=== PATIENT | male | born 1985 | race Caucasian/White ===

== ENCOUNTER 2017-06-27 19:15 | Emergency (ER) | payer OTHER, MEDICAID ==
[~2017-06-27] VITALS: Ht 180.3 cm; Wt 141.0 kg
[~2017-06-27 19:15] MED LIST: Z.0.NO CURRENT MEDS
[2017-06-27 19:20] VITALS: BP 169/104; PULSE 78; RESP 18; TEMP 97.6; O2SAT 98
[2017-06-27] MEDS ORDERED: SERT-129 PO (19:42)
[2017-06-27] MEDS ORDERED: AMIT10TA6 PO (19:42)
[2017-06-27] MEDS ORDERED: CLAR10CA3 PO (19:42)
[2017-06-27] MEDS ORDERED: WELLTAB39 PO (19:42)
[2017-06-27] MEDS ORDERED: ALBU0.63 NEB (19:42)
[2017-06-27] MEDS ORDERED: FLUT1SPR5 EACH NARE (19:42)
--- NOTE | 2017-06-27 19:44 | PD ---
HPI Chief Complaint: Headache Time Seen by Provider: 19:31 Travel History International Travel<30 days: No Contact w/Intl Traveler<30days: No Traveled to known affect area: No History of Present Illness HPI This patient complains of migraine headache. He is a bilateral frontal throbbing. He gets migraines very frequently. He is on amitriptyline try to help prevent but it's not working. No head injury or fever or thunderclap onset. This feels like his usual migraine. He has nausea. No other neurologic complaint. No alleviating factors. PFSH Social History Alcohol Use: No Tobacco Use: No Allergies-Medications (Allergen,Severity, Reaction): Coded Allergies: penicillin G (Unverified Allergy, Severe, 06/27/17) Reported Meds & Prescriptions Reported Meds & Active Scripts Active Reported Albuterol Neb (Albuterol Sulfate) 0.63 Mg/3 Ml Neb 0.63 Mg NEB TID NEB PRN Flonase Nasal [place] (Fluticasone Nasal [place]) 50 Mcg/Act [place] 50 Mcg EACH NARE BID Claritin (Loratadine) 10 Mg Cap 10 Mg PO DAILY Sertraline (Sertraline HCl) 100 Mg Tab 100 Mg PO DAILY Wellbutrin Xl 24 HR (Bupropion HCl) 300 Mg Tab 300 Mg PO DAILY Amitriptyline (Amitriptyline HCl) 10 Mg Tab 10 Mg PO HS Review of Systems General / Constitutional: No: Fever HENT: Positive: Headaches Cardiovascular: No: Chest Pain or Discomfort Respiratory: No: Cough Gastrointestinal: Positive: Nausea Physical Exam Narrative GENERAL: Well-nourished, well-developed patient with headache . SKIN: Focused skin assessment reveals no rash and nodules. Skin is Warm and dry. HEAD: Atraumatic. Normocephalic. EYES: Pupils equal and round. No scleral icterus. No injection or drainage. ENT: No nasal bleeding or discharge. Mucous membranes pink and moist. NECK: Trachea midline. No JVD. CARDIOVASCULAR: Regular rate and rhythm. No murmur appreciated. RESPIRATORY: No accessory muscle use. Clear to auscultation. Breath sounds equal bilaterally. GASTROINTESTINAL: Abdomen soft, non-tender, nondistended. Hepatic and splenic margins not palpable. MUSCULOSKELETAL: No obvious deformities. No clubbing. No cyanosis. No edema. NEUROLOGICAL: Awake and alert. No obvious cranial nerve deficits. Motor grossly within normal limits. Normal speech. PSYCHIATRIC: Appropriate mood and affect; insight and judgment normal. Data Data Last Documented VS Vital Signs Date Time Temp Pulse Resp B/P (MAP) Pulse Ox O2 Delivery O2 Flow Rate FiO2 06/27/17 20:30 71 18 128/77 (94) 98 Room Air 06/27/17 19:20 97.6 Orders Orders Ketorolac Inj (Toradol Inj) (06/27/17 19:45) Promethazine Inj (Phenergan Inj) (06/27/17 19:45) Acetamin-Hydrocod 325-5 Mg ([place] 5-325 (06/27/17 19:45) MDM Medical Decision Making Medical Screen Exam Complete: Yes Emergency Medical Condition: Yes Medical Record Reviewed: Yes Differential Diagnosis Differential diagnosis includes migraine, tension headache, cluster headache, meningitis. Narrative Course I have reviewed the patient's electronic medical record. Patient is neurologically intact. This feels like her usual migraine. I don't see any indication for emergent studies. I gave him injection of Toradol and Phenergan and 2 pain pills The patient was advised to follow up with their physician and return if they worsen. Diagnosis Primary Impression: Migraine headache Qualified Codes: G43.909 - Migraine, unspecified, not intractable, without status migrainosus Additional Instructions: The patient was advised to follow up with their physician and return if they worsen. Med/Other Pt SpecificInfo: Other Disposition: 01 DISCHARGE HOME Condition: Stable Sergei Ya MD Jun 27, 2017 19:44
[2017-06-27] MEDS ORDERED: ACETAMINOPHEN/HYDROcodone 325 MG/5 MG TAB PO ONE (19:45)
[2017-06-27] MEDS ORDERED: PROMETHAZINE INJ 25 MG/ML VIAL IM ONE (19:45)
[2017-06-27] MEDS ORDERED: KETOROLAC TROMETHAMINE 60 MG/2 ML (IM) VIAL IM ONE (19:45)
[2017-06-27 20:30] VITALS: BP 128/77; PULSE 71; RESP 18; O2SAT 98
== END 2017-06-27 21:09 | disposition home or self-care (01) ==
LOC: PHED 19:15
DX: G43.909 Migraine, unspecified, not intractable, without status migrainosus (principal); R11.0 Nausea
CPT/HCPCS: 96372; 99284; J1885; J2550

== ENCOUNTER 2017-06-30 20:03 | Emergency (ER) | payer OTHER ==
[~2017-06-30 20:03] MED LIST changes: +ALBU0.63 NEB; +AMIT10TA6 PO; +CLAR10CA3 PO; +FLUT1SPR5 EACH NARE; +SERT-129 PO; +WELLTAB39 PO; -Z.0.NO CURRENT MEDS
[2017-06-30 20:25] VITALS: BP 134/81; PULSE 79; RESP 20; TEMP 97.4; O2SAT 99
--- NOTE | 2017-06-30 20:52 | PD ---
HPI Chief Complaint: Headache Time Seen by Provider: 20:40 Travel History International Travel<30 days: No Contact w/Intl Traveler<30days: No Traveled to known affect area: No History of Present Illness HPI The patient is a 32-year-old male who has a history of migraine headaches and complains of bilateral frontal throbbing for about 6 days. He came in on the first of this month and was given Toradol IV but he states it only worked for a small amount of time. He states when he gets 60 mg IM it works better for him. He denies any focal neurologic complaints like numbness, weakness. He denies any fever. He is normally followed in [place] for his migraine headaches. He has photophobia/phonophobia. 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 ) Social History Alcohol Use: Yes (Occ) Tobacco Use: No Substance Use: No Allergies-Medications (Allergen,Severity, Reaction): Coded Allergies: penicillin G (Unverified Allergy, Severe, 06/27/17) Reported Meds & Prescriptions Reported Meds & Active Scripts Active Ketorolac (Ketorolac Tromethamine) 10 Mg Tab 10 Mg PO TID Reported Vitamin B-12 (Cyanocobalamin) 1,000 Mcg Tab 1,000 Mcg PO DAILY Probiotic (Lactobacillus Acidophilus) 10 Billion Cell Cap 1 Cap PO DAILY Albuterol Neb (Albuterol Sulfate) 0.63 Mg/3 Ml Neb 0.63 Mg NEB TID NEB PRN Flonase Nasal [place] (Fluticasone Nasal [place]) 50 Mcg/Act [place] 50 Mcg EACH NARE BID Claritin (Loratadine) 10 Mg Cap 10 Mg PO DAILY Sertraline (Sertraline HCl) 100 Mg Tab 300 Mg PO DAILY Wellbutrin Xl 24 HR (Bupropion HCl) 300 Mg Tab 300 Mg PO DAILY Amitriptyline (Amitriptyline HCl) 10 Mg Tab 10 Mg PO HS Review of Systems Except as stated in HPI: all other systems reviewed are Neg Physical Exam Narrative GENERAL: The patient is alert, oriented 3 in moderate apparent distress with his headache. SKIN: Focused skin assessment warm/dry. HEAD: Atraumatic. Normocephalic. EYES: Pupils equal and round. No scleral icterus. No injection or drainage. ENT: No nasal bleeding or discharge. Mucous membranes pink and moist. NECK: Trachea midline. No JVD. The patient flexes neck fully without any hesitation so that the chin touches the chest. CARDIOVASCULAR: Regular rate and rhythm. No murmur appreciated. RESPIRATORY: No accessory muscle use. Clear to auscultation. Breath sounds equal bilaterally. GASTROINTESTINAL: Abdomen soft, non-tender, nondistended. Hepatic and splenic margins not palpable. MUSCULOSKELETAL: No obvious deformities. No clubbing. No cyanosis. No edema. NEUROLOGICAL: Awake and alert. No obvious cranial nerve deficits. Motor grossly within normal limits. Normal speech. PSYCHIATRIC: Appropriate mood and affect; insight and judgment normal. Data Data Last Documented VS Vital Signs Date Time Temp Pulse Resp B/P (MAP) Pulse Ox O2 Delivery O2 Flow Rate FiO2 06/30/17 21:52 81 16 170/85 (113) 98 Room Air 06/30/17 20:25 97.4 Orders Orders Prochlorperazine Inj (Compazine Inj) (06/30/17 21:00) Ketorolac Inj (Toradol Inj) (06/30/17 21:00) Ondansetron Inj (Zofran Inj) (06/30/17 21:45) Sodium Chlor 0.9% 1000 Ml Inj (Ns 1000 M (06/30/17 21:45) MDM Medical Decision Making Medical Screen Exam Complete: Yes Emergency Medical Condition: Yes Medical Record Reviewed: Yes Differential Diagnosis Migraine headache, cluster headache, subarachnoid hemorrhage-highly unlikely, tension headache Narrative Course The patient appears to have a migraine headache. His long history of migraines plus the photophobia/phonophobia suggest migraine. After Toradol and Compazine the patient states he feels fine and wants to go home. He will be given a prescription for Compazine. He also requested Toradol and he will get a prescription for Toradol. Diagnosis Primary Impression: Migraine headache Additional Instructions: The Compazine this every 4-6 hours as needed for nausea. Toradol should be taken regularly for the first day or 2, it is one tablet 3 times daily. Follow- up with her primary care physician as soon as possible. Med/Other Pt SpecificInfo: Prescription(s) given Scripts Prochlorperazine Maleate (Prochlorperazine Maleate) 10 Mg Tab 10 MG PO Q4H Y for NAUSEA OR VOMITING, #28 TAB 0 Refills Prov: Jaden Sunshine MD 06/30/17 Ketorolac (Ketorolac) 10 Mg Tab 10 MG PO TID for Pain Management, #30 TAB 0 Refills Prov: aJden Sunshine MD 06/30/17 Disposition: 01 DISCHARGE HOME Condition: Stable Jaden Sunshine MD Jun 30, 2017 20:52
[2017-06-30] MEDS ORDERED: PROCHLORPERAZINE INJ 10 MG/2 ML VIAL IV PUSH ONE (21:00)
[2017-06-30] MEDS ORDERED: KETOROLAC TROMETHAMINE 60 MG/2 ML (IM) VIAL IM ONE (21:00)
[2017-06-30] MEDS ORDERED: VITA10002 PO (21:12)
[2017-06-30] MEDS ORDERED: LACTCAP8 PO (21:12)
[2017-06-30 21:15] VITALS: BP 180/81; PULSE 76; RESP 16; O2SAT 98
[2017-06-30] MEDS ORDERED: SODIUM CHLOR 0.9% 1000 ML INJ 1,000 ML IV SCH (21:45)
[2017-06-30] MEDS ORDERED: ONDANSETRON HCL 4 MG/2 ML VIAL IV ONE (21:45)
[2017-06-30 21:52] VITALS: BP 170/85; PULSE 81; RESP 16; O2SAT 98
[2017-06-30] MEDS ORDERED: KETO10 PO (22:11)
[2017-06-30] MEDS ORDERED: PROC10TA PO (22:15)
== END 2017-06-30 22:36 | disposition home or self-care (01) ==
LOC: PHED 20:03
DX: G43.909 Migraine, unspecified, not intractable, without status migrainosus (principal); H53.143 Visual discomfort, bilateral; J45.909 Unspecified asthma, uncomplicated
CPT/HCPCS: 96361; 96372; 96374; 96375; 99284; J0780; J1885; J2405; J7030

== ENCOUNTER 2017-09-26 18:32 | Emergency (ER) | payer OTHER ==
[~2017-09-26] VITALS: Ht 180.3 cm; Wt 140.0 kg
[~2017-09-26 18:32] MED LIST changes: +KETO10 PO; +LACTCAP8 PO; +PROC10TA PO; +VITA10002 PO
[2017-09-26 18:39] VITALS: BP 180/93; PULSE 102; RESP 18; TEMP 98; O2SAT 96
[2017-09-26] MEDS ORDERED: METO25TA3 PO (18:49)
[2017-09-26] MEDS ORDERED: AUGM875T3 PO (20:12)
[2017-09-26] MEDS ORDERED: FLUT1SPR9 EACH NARE (20:12)
--- NOTE | 2017-09-26 20:13 | PD ---
HPI Chief Complaint: Cold / Flu Symptoms Time Seen by Provider: 19:38 Travel History International Travel<30 days: No Contact w/Intl Traveler<30days: No Traveled to known affect area: No History of Present Illness HPI This is a 32-year-old male here with sinus pain and pressure 2 weeks. He is reporting purulent nasal discharge. Frontal headache. History of sinusitis with similar pain in the past. Symptom severity is moderate. No aggravating or alleviating factors. 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 ) Social History Alcohol Use: Yes (Occ) Tobacco Use: No Substance Use: No Allergies-Medications (Allergen,Severity, Reaction): Coded Allergies: penicillin G (Unverified Allergy, Severe, 09/26/17) Reported Meds & Prescriptions Reported Meds & Active Scripts Active Prochlorperazine Maleate 10 Mg Tab 10 Mg PO Q4H PRN Ketorolac (Ketorolac Tromethamine) 10 Mg Tab 10 Mg PO TID Reported Metoprolol Tartrate 25 Mg Tab 25 Mg PO BID Vitamin B-12 (Cyanocobalamin) 1,000 Mcg Tab 1,000 Mcg PO DAILY Probiotic (Lactobacillus Acidophilus) 10 Billion Cell Cap 1 Cap PO DAILY Albuterol Neb (Albuterol Sulfate) 0.63 Mg/3 Ml Neb 0.63 Mg NEB TID NEB PRN Flonase Nasal [place] (Fluticasone Nasal [place]) 50 Mcg/Act [place] 50 Mcg EACH NARE BID Claritin (Loratadine) 10 Mg Cap 10 Mg PO DAILY Sertraline (Sertraline HCl) 100 Mg Tab 300 Mg PO DAILY Wellbutrin Xl 24 HR (Bupropion HCl) 300 Mg Tab 300 Mg PO DAILY Amitriptyline (Amitriptyline HCl) 10 Mg Tab 10 Mg PO HS Review of Systems Except as stated in HPI: all other systems reviewed are Neg General / Constitutional: No: Fever Eyes: No: Visual changes HENT: Positive: Headaches, Congestion Cardiovascular: No: Chest Pain or Discomfort Respiratory: No: Shortness of Breath Gastrointestinal: No: Abdominal Pain Genitourinary: No: Dysuria Physical Exam Narrative GENERAL: Alert and well-appearing 32-year-old male SKIN: Warm and dry. HEAD: Normocephalic. Ear/nose/throat; tenderness over the frontal and maxillary sinuses. No pharyngeal erythema. No tonsillar hypertrophy or exudate. He was midline. Airways patent. EYES: No injection or drainage. NECK: Supple CARDIOVASCULAR: Regular rate and rhythm RESPIRATORY: Breath sounds equal bilaterally. No accessory muscle use. GASTROINTESTINAL: Abdomen soft, non-tender, nondistended. Data Data Last Documented VS Vital Signs Date Time Temp Pulse Resp B/P (MAP) Pulse Ox O2 Delivery O2 Flow Rate FiO2 09/26/17 18:39 98.0 102 18 180/93 (122) 96 MDM Medical Decision Making Medical Screen Exam Complete: Yes Emergency Medical Condition: Yes Differential Diagnosis Sinusitis, URI, sinus headache Narrative Course This is a 32-year-old male with sinusitis. He is nontoxic appearing. He will be treated with Flonase and Augmentin. Of note patient does not have true allergy to penicillins. He reports he takes Augmentin and amoxicillin frequently without reaction. Diagnosis Primary Impression: Sinusitis Qualified Codes: J01.00 - Acute maxillary sinusitis, unspecified Referrals: Primary Care Physician Additional Instructions: Medication as directed. Tylenol and ibuprofen for pain Scripts Fluticasone Nasal [place] (Flonase Allergy Relief Children Nasal [place]) 50 Mcg/ Act [place] 1 SPRAY EACH NARE DAILY for Allergy Management, #1 BOTTLE 0 Refills 50 mcg/spray Prov: Bri Sotelo 09/26/17 Amoxicillin-Clavulanate (Augmentin) 875-125 Mg Tab 1 TAB PO BID for Infection, #20 TAB 0 Refills Prov: Bri Sotelo 09/26/17 Disposition: 01 DISCHARGE HOME Condition: Stable Bri Sotelo Sep 26, 2017 20:13
[2017-09-26 20:20] VITALS: BP 143/76
== END 2017-09-26 20:24 | disposition home or self-care (01) ==
LOC: PHEFT 18:32
DX: J01.00 Acute maxillary sinusitis, unspecified (principal); J45.909 Unspecified asthma, uncomplicated; F32.9 Major depressive disorder, single episode, unspecified
CPT/HCPCS: 99283